=== PATIENT | male | born 1995 | race Caucasian/White ===

== ENCOUNTER 2019-07-08 15:08 | Emergency (ER) | payer SELFPAY ==
[~2019-07-08] VITALS: Ht 190.5 cm; Wt 122.5 kg
[~2019-07-08 15:08] MED LIST: CODACE30 PO
== END 2019-07-08 16:06 | disposition home or self-care (01) ==
LOC: ER 15:08
DX: J02.9 Acute pharyngitis, unspecified (principal)
CPT/HCPCS: 87081; 87430; 99283

== ENCOUNTER 2020-06-17 19:41 | Emergency (ER) | payer OTHER ==
[~2020-06-17] VITALS: Ht 190.5 cm; Wt 111.6 kg
== END 2020-06-17 20:56 | disposition left against medical advice (07) ==
LOC: ER 19:41
DX: S39.92XA Unspecified injury of lower back, initial encounter (principal); X50.0XXA Overexertion from strenuous movement or load, initial encounter
CPT/HCPCS: 99282